=== PATIENT | male | born 1970 | race Caucasian/White ===

== ENCOUNTER 2021-05-13 14:08 | Emergency (ER) | payer MEDICAID ==
[~2021-05-13] VITALS: Ht 185.4 cm; Wt 95.3 kg
[2021-05-13 14:15] VITALS: BP 122/83
[2021-05-13] MEDS ORDERED: BACITRACIN OINT 500 UNITS/GM PKT TP ONE (14:30)
[2021-05-13] MEDS ORDERED: LIDOCAINE MPF 1% 10 MG/ML VIAL INJ ONE (14:30)
--- NOTE | 2021-05-13 14:32 | NUR ---
51 Y/O M BIB SELF FROM HOME, PATIENT PRESENTS TO ED WITH R LEG LAC AFTER CLIMBING OVER FENCE AND CUT LEG. 1 CM LAC ON LEG, PT CAME IN WITH TOWEL WRAPPED AROUND SITE SATURATED WITH BLOOD. EDEMA AROUND LAC SITE, NON PITTING. DENIES N/V/D; SKIN IS PINK/WARM/DRY; AAOX4 WITH EVEN AND STEADY GAIT; LUNGS CLEAR BL; HR EVEN AND REGULAR; PT DENIES ANY FEVER, CP, SOB, OR COUGH AT THIS TIME; PATIENT STATES PAIN OF 0/10 AT THIS TIME; VSS; PATIENT POSITIONED FOR COMFORT; HOB ELEVATED; BEDRAILS UP X2; BED DOWN. ER MD MADE AWARE OF PT STATUS. PMH: DENIES NKA
--- NOTE | 2021-05-13 14:50 | NUR ---
IRRIGATED PT RIGHT FOOT WITHOUT ANY ISSUES
[2021-05-13] MEDS ORDERED: BACI1PAC6 TP (14:59)
[2021-05-13] MEDS ORDERED: IBUP-2213 PO (14:59)
[2021-05-13 15:07] VITALS: BP 122/83
--- NOTE | 2021-05-13 15:07 | NUR ---
Patient discharged with v/s stable. Written and verbal after care instructions given and explained. Patient alert, oriented and verbalized understanding of instructions. Ambulatory with steady gait. All questions addressed prior to discharge. ID band removed. Patient advised to follow up with PMD. Rx of IBUPROFEN, BACITRACIN given. Patient educated on indication of medication including possible reaction and side effects. Opportunity to ask questions provided and answered.
== END 2021-05-13 15:07 | disposition home or self-care (01) ==
LOC: MED 14:08
DX: S81.811A Laceration without foreign body, right lower leg, initial encounter (principal); W01.198A Fall on same level from slipping, tripping and stumbling with subsequent striking against other object, initial encounter; Y93.89 Activity, other specified; Y92.89 Other specified places as the place of occurrence of the external cause; Y99.8 Other external cause status
CPT/HCPCS: 12001; 90471; 90715; 99283; J2001

== ENCOUNTER 2021-05-17 12:43 | Emergency (ER) | payer MEDICAID ==
[~2021-05-17] VITALS: Ht 185.4 cm; Wt 95.3 kg
[~2021-05-17 12:43] MED LIST: BACI1PAC6 TP; IBUP-2213 PO
[2021-05-17 12:47] VITALS: BP 134/83
--- NOTE | 2021-05-17 12:52 | NUR ---
PATIENT AMBULATED TO BED 4.
--- NOTE | 2021-05-17 12:59 | NUR ---
51 y/o M BIB self from home for wound recheck. patient A&Ox4, ambulatory, states laceration to R anterior arechiga 3 days ago s/p getting cut by a fence. Patient seen here for treatment. No swelling, redness, drainage, or pain noted to suture site. Patient denies any medical symptoms. 0/10 pain per patient. Patient seated into chair. VSS. PMH/Sx/Meds: Denies NKA
--- NOTE | 2021-05-17 13:10 | NUR ---
IONA Pan is evaluating patient at bedside.
[2021-05-17 13:16] VITALS: BP 134/83
--- NOTE | 2021-05-17 13:16 | NUR ---
Patient discharged with v/s stable. Written and verbal after care instructions given and explained. Patient verbalized understanding. Ambulatory with steady gait. All questions addressed prior to discharge. Advised to follow up with PMD.
== END 2021-05-17 13:16 | disposition home or self-care (01) ==
LOC: MED 12:43
DX: S81.811D Laceration without foreign body, right lower leg, subsequent encounter (principal); F17.210 Nicotine dependence, cigarettes, uncomplicated; Z79.899 Other long term (current) drug therapy; X58.XXXD Exposure to other specified factors, subsequent encounter
CPT/HCPCS: 99281

== ENCOUNTER 2024-04-24 13:34 | Emergency (ER) | payer MEDICAID ==
[~2024-04-24] VITALS: Ht 185.4 cm; Wt 108.9 kg
[~2024-04-24 13:34] MED LIST changes: +BACI-418 TP; -BACI1PAC6 TP
[2024-04-24 14:00] VITALS: BP 128/83; PULSE 90; RESP 18; TEMP 97.8; O2SAT 100
[2024-04-24] MEDS ORDERED: IBUP-2213 PO (15:21)
[2024-04-24] MEDS ORDERED: CEPH-588 PO (15:21)
[2024-04-24] MEDS ORDERED: ACET-8905 PO (15:21)
[2024-04-24] MEDS: KETOROLAC 60 MG/2 ML VIAL IM ONE (15:29)
[2024-04-24 16:03] VITALS: BP 120/80; PULSE 91; RESP 20; TEMP 97.8; O2SAT 100
== END 2024-04-24 16:03 | disposition home or self-care (01) ==
LOC: MED 13:34
DX: L03.115 Cellulitis of right lower limb (principal); F17.200 Nicotine dependence, unspecified, uncomplicated; Z79.899 Other long term (current) drug therapy
CPT/HCPCS: 96372; 99283; J1885

== ENCOUNTER 2024-05-09 14:15 | Emergency (ER) | payer MEDICAID ==
[~2024-05-09] VITALS: Ht 185.4 cm; Wt 122.5 kg
[~2024-05-09 14:15] MED LIST changes: +ACET-8905 PO; +CEPH-588 PO
[2024-05-09 14:29] VITALS: BP 143/76; PULSE 81; RESP 20; TEMP 97.3; O2SAT 97
[2024-05-09 15:51] LABS: BASOPHILS % (AUTO) 0.3 % (0.0-2.0); EOSINOPHILS # (AUTO) 0.3 K/uL (0-0.4); EOSINOPHILS % (AUTO) 4.4 % (0.0-4.0); HEMATOCRIT 34.9 % (36-52); HEMOGLOBIN 11.7 g/dL (12.0-18.0); MEAN CORPUSCULAR HEMOGLOBIN 28 pg (27-31); MEAN CORPUSCULAR HGB CONC 33 g/dL (33-37); MEAN CORPUSCULAR VOLUME 83.7 fL (80-94); MONOCYTES # (AUTO) 0.4 K/uL (0.8-1.0); MONOCYTES % (AUTO) 4.9 % (1.7-9.3); NEUTROPHILS # (AUTO) 4.5 K/uL (1.8-7.7); NEUTROPHILS % (AUTO) 62.4 % (42.2-75.2); PLATELET COUNT (AUTO) 516 K/uL (140-450); RED BLOOD CELL COUNT(AUTO) 4.17 MIL/uL (4.20-6.10); RED CELL DISTRIBUTION WIDTH 14.5 % (11.6-13.7); WHITE BLOOD COUNT (AUTO) 7.2 K/uL (4.8-10.8)
[2024-05-09 16:22] LABS: ANION GAP 13.9 (8-16); CALCIUM 8.5 mg/dL (8.5-10.1); CARBON DIOXIDE 25.9 mmol/L (21-32); CREATININE 1.3 mg/dL (0.6-1.3); POTASSIUM 3.8 mmol/L (3.5-5.1)
[2024-05-09] MEDS ORDERED: CEPH500C16 PO (17:59)
[2024-05-09] MEDS ORDERED: IBUP-2213 PO (17:59)
[2024-05-09 18:08] VITALS: BP 161/96; PULSE 76; RESP 18; TEMP 98; O2SAT 98
== END 2024-05-09 18:08 | disposition home or self-care (01) ==
LOC: MED 14:15
DX: I87.2 Venous insufficiency (chronic) (peripheral) (principal); D64.9 Anemia, unspecified; D75.839 Thrombocytosis, unspecified; R03.0 Elevated blood-pressure reading, without diagnosis of hypertension; Z79.1 Long term (current) use of non-steroidal anti-inflammatories (NSAID); Z79.2 Long term (current) use of antibiotics
CPT/HCPCS: 36415; 80048; 85025; 85651; 86140; 93970; 99284; Q0092; 99285